=== PATIENT | male | born 2000 | race Caucasian/White ===

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

== ENCOUNTER 2022-01-01 17:30 | Emergency (ER) | payer MEDICAID, SELFPAY ==
[2022-01-01 17:45] VITALS: BP 139/76; PULSE 60; RESP 18; TEMP 37.1; O2SAT 99
--- NOTE | 2022-01-01 20:44 | W.ED.GENAD ---
Discharge Plan Disposition Patient Disposition: HOME Condition: Stable Discharge Details Clinical Impression: Temporomandibular joint (TMJ) pain Primary Care Provider: Honey Hale ED Provider: Rickey Sandhu Home Meds and New Rx's Prescriptions: New ibuprofen [IBU] 600 mg tablet 600 mg PO QID PRN (Reason: pain) Qty: 20 0RF cyclobenzaprine 5 mg tablet 10 mg PO TID PRN (Reason: muscle spasm) Qty: 10 0RF Discharge Instructions Instructions: Temporomandibular Disorder (ED) Additional Instructions: If you develop any new or significant worsening of symptoms feel free to return to the emergency department for reassessment. Otherwise if not improving after 1 week please follow-up with primary care provider or urgent care as you may need a ENT referral. Please be cautious with taking the muscle relaxer as this may cause some sedation. Please use caution with driving, shooting guns, or any use of heavy machinery or dangerous. Referrals: Honey Hale NP [Primary Care Provider] - Discharge Data Discharge Date/Time-TO BE ENTERED AT DEPARTURE: 01/01/22 21:41 Medical Decision Making Patient presenting to the emergency department for chief complaint of right jaw pain. He does state that pain does slightly radiate up into his head and slightly behind his ear. Patient denies any fever chills, difficulty breathing or swallowing. Physical exam shows tenderness to the TMJ when patient opens and closes his mouth and to palpation of the area otherwise no signs of rash to suggest zoster, no findings to suggest trigeminal neuralgia, no temporal tenderness to suggest temporal arteritis, no signs of infection. Suspect TMJ dysfunction. Will treat with NSAIDs and give patient a limited prescription of Flexeril to see if this helps. Patient otherwise to follow-up with dental provider or return for any new or significant worsening of symptoms. After discussion of diagnosis and plan of care patient has no further needs, questions, or concerns and states clear understanding to return to the emergency department for any worsening symptoms. This documentation was generated using [employer] system, please disregard any oddities of phrase or misspellings. HPI General Mode of arrival: ambulatory. Date/Time Provider Initiated Documentation: 01/01/22 18:09. Limitations to Documentation: no limitations. Information obtained by: patient. History of Present Illness 21 year old M presents to the emergency department with the chief complaint of Right jaw pain , described as moderate, with intensity rated at 8. Quality is described as aching, and is localized to the mouth. Patient started experiencing this week(s) (3) and it has been constant. No relieving factors improve symptom(s), Eating worsens symptoms . Patient notes no other symptoms.. Patient did receive the following treatments prior to arrival, NSAID Related Data Home Medications Medication Instructions Recorded Confirmed cyclobenzaprine 5 mg tablet 10 mg PO TID PRN muscle spasm #10 01/01/22 tabs ibuprofen 600 mg tablet (IBU) 600 mg PO QID PRN pain #20 tabs 01/01/22 Previous Rx's Medication Instructions Recorded cyclobenzaprine 5 mg tablet 10 mg PO TID PRN muscle spasm #10 01/01/22 tabs ibuprofen 600 mg tablet (IBU) 600 mg PO QID PRN pain #20 tabs 01/01/22 Allergies Allergy/AdvReac Type Severity Reaction Status Date / Time mold Allergy Severe Respiratory Verified 03/19/21 14:19 issues No Known Drug Allergies Allergy Verified 03/19/21 14:19 General Stated Complaint: DentalOral LUISA: 4 Review of Systems Constitutional Constitutional: Denies chills and Denies fever(s) ENT Ears, Nose, Mouth, and Throat: Reports as per HPI, Denies change in voice, Reports dental pain, Denies dysphagia, Denies throat swelling and Denies tongue swelling Cardiovascular Cardiovascular: Denies chest pain and Denies dyspnea Respiratory Respiratory: Denies dyspnea, Denies stridor and Denies wheezing Gastrointestinal Gastrointestinal: Denies abdominal pain, Denies dysphagia, Denies nausea and Denies vomiting Integumentary/Breasts Skin/Breast: Denies rash Allergic/Immunologic Allergic/Immunologic: Denies throat swelling, Denies tongue swelling and Denies wheezing [facility] Active Problems (Updated 01/01/22 @ 20:45 by Rickey Sandhu NP) Temporomandibular joint (TMJ) pain (Acute) Strain of left elbow (Acute) History of marijuana use (Acute 03/18/17) Anxiety and depression (Chronic) Medical History (Updated 01/01/22 @ 20:45 by Rickey Sandhu NP) History of wrist sprain Right ankle sprain Tendonitis Family History Mother Neoplasm THYROID Father Mental disorder SIBL[place] Asthma Social History Smoking/Tobacco Use Status: Never Smoking risk assessment performed?: Yes Alcohol Intake: never Substance use type: does not use Education Level: college Details: freshman [employer] fall 2020 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 Pets and animals: Yes Pets and animals: cat(s) and dog(s) Do you feel safe at home: Yes Do you feel safe in your relationship?: Yes Exam Const General: cooperative Orientation: alert, awake and oriented x3 Limitations: mental status not altered HENMT Head: normal to inspection, normocephalic and atraumatic Ears: hearing grossly normal bilaterally, normal mastoids bilaterally and no periauricular adenopathy General nose exam: external nose normal Face and sinus: no erythema, no edema and tenderness on the right mandible (TMJ) Mouth: oropharynx normal, no drooling, no muffled voice, normal tongue, abnormal TMJ (Pain with movement) and no trismus Throat: posterior oropharynx normal, tonsils normal and uvula midline Eyes General: appearance normal, both eyes and all related structures Pupils: PERRL Neck Neck: normal visual inspection, full ROM, no lymphadenopathy, no meningeal signs, trachea midline, supple, no anterior neck swelling and no midline deformity Resp Effort & Inspection: normal respiratory effort and able to speak in complete sentences Neuro General: patient alert, patient awake, patient oriented x3, tone normal, normal light touch, pain and propioception, no focal motor deficits and CN's II-XI intact bilaterally Course Vital Signs Vital signs: Vital Signs Temperature 37.1 C 01/01/22 17:45 Pulse 60 01/01/22 17:45 Respiratory Rate 18 01/01/22 17:45 Blood Pressure 139/76 01/01/22 17:45 Pulse Oximetry 99 01/01/22 17:45 Temperature 37.1 C 01/01/22 17:45 Pulse 60 01/01/22 17:45 Respiratory Rate 18 01/01/22 17:45 Blood Pressure 139/76 01/01/22 17:45 Blood Pressure Position Sitting 01/01/22 17:45 Pulse Oximetry 99 01/01/22 17:45 Oxygen Delivery Method Room Air 01/01/22 17:45 Oxygen Flow Rate 0 01/01/22 17:45 Pain Level 8 01/01/22 17:45
[2022-01-01] MEDS: Ketorolac 30 MG/ML VIAL IM (20:57)
[2022-01-01] MEDS: Cyclobenzaprine 10 MG TAB, 3 TABS/BTL PO (20:57)
== END 2022-01-01 21:41 | disposition home or self-care (01) ==
PROVIDERS: Emergency Provider Nurse Practitioner Family; PCP Nurse Practitioner Pediatrics
DX: M26.621 Arthralgia of right temporomandibular joint (principal)
CPT/HCPCS: 96372; 99284; 99283; J1885

== ENCOUNTER 2022-02-06 21:36 | Emergency (ER) | payer MEDICAID, SELFPAY ==
[2022-02-06 21:43] VITALS: BP 139/76; PULSE 72; RESP 16; TEMP 37.3; O2SAT 100
--- NOTE | 2022-02-06 21:45 | DI.RAD_ITS ---
Exam(s) XR SHOULDER RT COMPLETE 2+V EXAM: XR SHOULDER RT COMPLETE 2+V CLINICAL HISTORY: Right shoulder pain,. TECHNIQUE: 2D digital imaging was performed of the right shoulder. Five images were obtained. AP, Grashey, Y-view and axillary views were obtained. COMPARISON: No exams were available for comparison FINDINGS: BONES: No acute fracture is present. No bony destructive lesion is seen. JOINTS: No dislocation present. SOFT TISSUE: Normal. IMPRESSION: Unremarkable radiographs of the right shoulder. DATA REPOSITORY: RADIATION DOSE DELIVERED:
--- NOTE | 2022-02-06 21:58 | W.ED.GENAD ---
Discharge Plan Disposition Patient Disposition: Home Condition: Stable Discharge Details Clinical Impression: Sprain of right shoulder Primary Care Provider: Honey Hale ED Provider: Isabela Mayer Home Meds and New Rx's Prescriptions: No Action No Known Home Meds Discharge Instructions Instructions: Shoulder Sprain (ED) Additional Instructions: I do suspect a sprain or strain of your right shoulder due to overuse. I do recommend muscle relaxer for the muscle spasms you may try 1 tablet a day at bedtime. You may also alternate ice and heat, you were given a lidocaine patch here in the department which she can get [id number]. Please take Tylenol or Ibuprofen with food every 4-6 hours as needed for pain and swelling. Also consider massage. Follow-up with orthopedics if continued pain for further evaluation. Follow up with primary care provider in 3-5 days. Return to ED sooner if any worsening or concerns. Increase oral fluids. Referrals: Lemuel Esteban MD [ [facility] STAFF PHYSICIAN] - 2 weeks Honey Hale NP [Primary Care Provider] - 5 days Medical Decision Making 21-year-old male with past medical history of tendinitis, ankle sprain and possible TMJ presents to the ER with a chief complaint of right shoulder pain which is been ongoing for over a month. He does report hearing and feeling some clicks with certain movements, he does have overuse from basketball, he reports that the pain is spreading to his lateral neck and up into his ear and right jaw. Patient was here approximately a month ago and was prescribed Flexeril which he reports that he did not really take. X-ray right shoulder and ibuprofen ordered. X-ray within normal limits. We will give Flexeril and lidocaine patch. Instruct on alternating ice and heat and follow up with Orthopedics due to the length of pain, I do suspect Musculoskeletal strain and sprain. This text was generated using [employer] dictation system, please disregard any oddities of phrase or misspellings. Medical Records Medical records reviewed: Yes I reviewed the patient's medical records. Imaging Data Radiologic Study: Imaging: X-Ray Radiologist's impression: Views: 2 or more views. COMPARISON: CR XR CHEST 2V PA LATERAL 03/19/2021 2:56 PM FINDINGS: Bones/joints: Normal. Soft tissues: Normal. IMPRESSION: No acute findings. Sign Out No HPI General Mode of arrival: ambulatory. Date/Time Provider Initiated Documentation: 02/06/22 21:39. Limitations to Documentation: no limitations. Information obtained by: patient, RN notes reviewed and old records reviewed. HPI Narrative: 21-year-old male with past medical history of tendinitis, ankle sprain and possible TMJ presents to the ER with a chief complaint of right shoulder pain which is been ongoing for over a month. He does report hearing and feeling some clicks with certain movements, he does have overuse from basketball, he reports that the pain is spreading to his lateral neck and up into his ear and right jaw. Patient was here approximately a month ago and was prescribed Flexeril which he reports that he did not really take. He is also not taking any Tylenol or ibuprofen. He has no known recent injury other than basketball overuse, no significant deformity or abnormality. He is moving his arm without difficulty but does report increased pain with horizontal adduction. Related Data Home Medications Medication Instructions Recorded Confirmed Unknown [No Known Home Meds] 02/06/22 02/06/22 Allergies Allergy/AdvReac Type Severity Reaction Status Date / Time mold Allergy Severe Respiratory Verified 02/06/22 21:47 issues No Known Drug Allergies Allergy Verified 02/06/22 21:47 General Stated Complaint: Orthopedic LUISA: 4 Review of Systems All systems reviewed & are unremarkable except as noted in HPI and below ENT Ears, Nose, Mouth, and Throat: Reports as per HPI, Reports facial pain and Reports neck pain (Right lateral) Cardiovascular Cardiovascular: Denies chest pain and Denies dyspnea Respiratory Respiratory: Denies dyspnea Musculoskeletal Musculoskeletal: Reports as per HPI, Reports arthralgias (hears clicks feels out of place), Reports neck pain (Right lateral), Reports radiating pain into limb and Reports stiffness PFS All Active Problems (Updated 02/06/22 @ 22:25 by Isabela Mayer NP) Sprain of right shoulder (Acute) Strain of left elbow (Acute) History of marijuana use (Acute 03/18/17) Anxiety and depression (Chronic) Medical History History of wrist sprain Right ankle sprain Tendonitis Family History Mother Neoplasm THYROID Father Mental disorder SIBLING Asthma Social History Smoking/Tobacco Use Status: Never Smoking risk assessment performed?: Yes Alcohol Intake: never Drug use: Daily Substance use type: marijuana Education Level: college Details: freshman [employer] fall 2020 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 Appears stated age. Normal body habitus. Head: Normocephalic, no trauma. Eyes: Pupils PERRL, Red reflex noted, EOM's intact. Eyelids symmetrical without lesions, discharge, or swelling. ENT: Bilateral TM's WNL, External ear normal to inspection, no mastoid TTP, swelling, or erythema, Nasal turbinates WNL, no nasal discharge. Normal dentition, Posterior pharynx WNL, no exudate. Chest: RRR, Normal S1, S2, distal pulses intact. Resp: Lungs clear to auscultation bilaterally, no wheezes, rales, or rhonchi. Musculoskeletal: Normal gait, 5/5 strength to all four extremities. Lateral right paraspinous pain and spasm. No obvious deformity, swelling, erythema, distal CMS intact. Skin: No suspicious rashes or lesions. Capillary refill less than 2 sec. Course Vital Signs Vital signs: Vital Signs Temperature 37.3 C 02/06/22 21:43 Pulse 72 02/06/22 21:43 Respiratory Rate 16 02/06/22 21:43 Blood Pressure 139/76 02/06/22 21:43 Pulse Oximetry 100 02/06/22 21:43 Temperature 37.3 C 02/06/22 21:43 Temperature Source Temporal Artery Scan 02/06/22 21:43 Pulse 72 02/06/22 21:43 Respiratory Rate 16 02/06/22 21:43 Respiratory Effort 02/06/22 21:43 Blood Pressure 139/76 02/06/22 21:43 Blood Pressure Position Sitting 02/06/22 21:43 Pulse Oximetry 100 02/06/22 21:43 Oxygen Delivery Method Room Air 02/06/22 21:43 Oxygen Flow Rate 0 02/06/22 21:43 Pain Level 4 02/06/22 21:43
[2022-02-06] MEDS: Ibuprofen 600 MG TAB PO (22:18)
--- NOTE | 2022-02-06 22:19 | DI.VRAD_ITS ---
PROCEDURE INFORMATION: Exam: XR Right Shoulder Exam date and time: 02/06/2022 10:09 PM Age: 21 years old Clinical indication: Pain; Shoulder; Right TECHNIQUE: Imaging protocol: Radiologic exam of the Right shoulder. Views: 2 or more views. COMPARISON: CR XR CHEST 2V PA LATERAL 03/19/2021 2:56 PM FINDINGS: Bones/joints: Normal. Soft tissues: Normal. IMPRESSION: No acute findings. Dictated and Authenticated by: Avinash Weir MD. Ordering:MAKSIM Mar MD
[2022-02-06] MEDS: Lidocaine 5% Patch 1 PATCH TP (22:32)
[2022-02-06] MEDS: Cyclobenzaprine 10 MG TAB, 3 TABS/BTL PO (22:33)
== END 2022-02-06 22:36 | disposition home or self-care (01) ==
PROVIDERS: Emergency Provider Registered Nurse Emergency; PCP Nurse Practitioner Pediatrics
DX: S43.491A Other sprain of right shoulder joint, initial encounter (principal); X58.XXXA Exposure to other specified factors, initial encounter
CPT/HCPCS: 99283; 73030

== ENCOUNTER 2022-02-07 23:26 | Emergency (ER) | payer MEDICAID, SELFPAY ==
[2022-02-07 23:30] VITALS: BP 128/81; PULSE 80; RESP 16; TEMP 36.7; O2SAT 96
--- NOTE | 2022-02-07 23:50 | ED.GENADUL_ITS ---
Discharge Plan Disposition Patient Disposition: Home Condition: Good Discharge Details Clinical Impression: Epicondylitis, lateral, right, Acute carpal tunnel syndrome of right wrist Primary Care Provider: Honey Hale ED Provider: Zion Gavin Home Meds and New Rx's Prescriptions: No Action No Known Home Meds Discharge Instructions Instructions: Tennis Elbow (ED), Paresthesia (ED) Additional Instructions: At this time there are 3 main issues going on. 1. In regards to your right shoulder, you have notable asymmetry which is likely from a mild scoliosis. It is led to muscle hypertrophy over your scapular spine. Please continue to massage the area gently, follow-up closely with physical therapy for continued physical therapy management of this area. If the pain worsens or changes you may need further imaging in the future. 2. in regards to your right elbow you have lateral epicondylitis/tennis elbow. This can occur from repetitive motions, and certain strains. We do not have the splint here, but at your local [facility], [facility] or [facility] you can pickle cutter a tennis elbow brace which is a band that goes around the forearm that I showed you here in the emergency department. Please use this every day whenever you are working to help the tendons heal. 3. You also have carpal tunnel syndrome which is mild. Please perform carpal tunnel stretches that can be found online. Apply the stretches 2-3 times per day. Avoid repetitive keyboard typing or computer mouse use. Regards to all 3 of these, it will take a few weeks for the pain and symptoms to improve as many of the symptoms have been going on for some time. Tylenol and Motrin will definitely help. Regular stretching will definitely help. Physical therapy will be very advantageous. If you notice any worsening of your symptoms, or any new symptoms such as vomiting, diarrhea, fever, chills, shortness of breath, chest pain, numbness, weakness, or fainting , please return immediately to the emergency department for reevaluation. Please follow up with your primary care provider as soon as possible for reassessment and reevaluation. As always, it was a pleasure partici pating in your medical care today. Referrals: Honey Hale NP [Primary Care Provider] - Discharge Data Discharge Date/Time-TO BE ENTERED AT DEPARTURE: 02/08/22 00:14 Medical Decision Making 21-year-old male presents today for evaluation of right thumb tingling, right wrist pain, right lateral elbow pain and tingling, and mild right shoulder pain. He was seen and assessed here yesterday, had negative x- rays, was prescribed muscle relaxant which she states does not make him feel good. He denies any other significant acute changes. No trauma. He is left- hand dominant but does do a lot of things with his right hand. 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 He has not taken any NSAIDs. No other complaints at this time. No other modifying factors. Exam demonstrates 3 main findings, he has a small muscle bulge over the superior spine of the scapula on the right, as well as a right-sided shoulder drop compared to the left. Likely secondary to a component of mild scoliosis. And chronic asymmetry leading to hypertrophy, however there does not appear to be any acute component at this time clinically. Additionally patient demonstrates evidence of lateral epicondylitis on the right, will recommend tennis elbow brace for use at work and with activities. Thirdly the patient demonstrates evidence of mild carpal tunnel syndrome, positive Tinel's test, but no evidence of significant neurovascular compromise. Recommend NSAIDs, tennis elbow brace, and outpatient physical therapy. Discussed red flags which to return. No indication for emergent imaging at this time. I have extensively reviewed the treatment plan and discharge instructions with the patient. I have addressed all patient concerns at this time. The patient was made aware of what symptoms to monitor for that would warrant a return to the emergency department. Discussed the plan with the patient, they demonstrate verbal understanding and agreement with our assessment and plan at this time. The documentation in this chart was dictated using [employer] dictation software. Please excuse any dictation errors. Sign Out No HPI General Date/Time Provider Initiated Documentation: 02/07/22 23:27 . HPI Narrative: 21-year-old male presents today for evaluation of right thumb tingling, right wrist pain, right lateral elbow pain and tingling, and mild right shoulder pain. He was seen and assessed here yesterday, had negative x- rays, was prescribed muscle relaxant which she states does not make him feel good. He denies any other significant acute changes. No trauma. He is left- hand dominant but does do a lot of things with his right hand. 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 He has not taken any NSAIDs. No other complaints at this time. No other modifying factors. Related Data Home Medications Medication Instructions Recorded Confirmed Unknown [No Known Home Meds] 02/06/22 02/06/22 Allergies Allergy/AdvReac Type Severity Reaction Status Date / Time mold Allergy Severe Respiratory Verified 02/06/22 21:47 issues No Known Drug Allergies Allergy Verified 02/06/22 21:47 General Stated Complaint: Orthopedic LUISA: 4 Review of Systems All systems reviewed & are unremarkable except as noted in HPI and below PFSH All Active Problems Sprain of right shoulder (Acute) Epicondylitis, lateral, right (Acute) Acute carpal tunnel syndrome of right wrist (Acute) Strain of left elbow (Acute) History of marijuana use (Acute 03/18/17) Anxiety and depression (Chronic) Medical History History of wrist sprain Right ankle sprain Tendonitis Family History Mother Neoplasm THYROID Father Mental disorder SIBLING Asthma Social History Smoking/Tobacco Use Status: Never Smoking risk assessment performed?: Yes Alcohol Intake: never Drug use: Daily Substance use type: marijuana Education Level: college Details: freshman [employer] fall 2020 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 3.ENT: Atraumatic external nose and ears. Moist MM. Neck: Symmetric, trachea midline, No thyromegaly. 4.CVS: +S1/S2, No murmurs or gallops. Peripheral pulses 2+ and equal in all extremities. Brisk capillary refill in all extremities. 5.RESP: Unlabored respiratory effort. Clear to auscultation bilaterally. No wheezes rales or rhonchi 6.GI: Soft, Nontender/Nondistended, No hepatosplenomegaly. No guarding or rebound. 7.MSK: Shoulder is unremarkable and nontender, scapula does demonstrate a bit of a muscle bulge over the superior aspect of the scapular spine. No redness or cellulitis to suggest infection. No palpable lipoma. Range of motion normal. Evaluation of the shoulders demonstrates that the right shoulder drops about an inch below where the left shoulder is. There also appears to be a slight rotational and side bending deformity of the spine suggesting mild scoliosis. Range of motion and strength is otherwise normal. Evaluation of the right elbow demonstrates tenderness over the lateral epicondyle, no redness or warmth to suggest infection. Mild tenderness over the proximal component of the radius. Worse with pronation. No other evidence of injury Evaluation of right hand and wrist demonstrates normal radial pulse, good sensation and normal cap refill throughout. Patient demonstrates good two-point discrimination in the hand and fingers, including in the distal thumb. Subjective diminished sensation over the thenar eminence however it is present on testing. Patient does have a positive Rocky Face's test, which does reproduce his symptoms. 8.Skin: Warm, Dry. No rashes or lesions. 9.Neuro: professional skater II-XII grossly intact. Sensation grossly intact, no focal neurologic deficits. 10.Psych: (AAO) x3. Appropriate mood and affect Course Vital Signs Vital signs: Vital Signs Temperature 36.7 C 02/07/22 23:30 Pulse 80 02/07/22 23:30 Respiratory Rate 16 02/07/22 23:30 Blood Pressure 128/81 02/07/22 23:30 Pulse Oximetry 96 02/07/22 23:30 Temperature 36.7 C 02/07/22 23:30 Pulse 80 02/07/22 23:30 Respiratory Rate 16 02/07/22 23:30 Blood Pressure 128/81 02/07/22 23:30 Blood Pressure Position Sitting 02/07/22 23:30 Pulse Oximetry 96 02/07/22 23:30 Oxygen Delivery Method Room Air 02/07/22 23:30 Oxygen Flow Rate 0 02/07/22 23:30 Pain Level 3 02/07/22 23:30
== END 2022-02-08 00:14 | disposition home or self-care (01) ==
PROVIDERS: Emergency Provider Student in an Organized Health Care Education/Training Program; PCP Nurse Practitioner Pediatrics
DX: M77.11 Lateral epicondylitis, right elbow (principal); G56.01 Carpal tunnel syndrome, right upper limb; R20.2 Paresthesia of skin
CPT/HCPCS: 99282

== ENCOUNTER 2022-03-04 17:04 | Emergency (ER) | payer MEDICAID, SELFPAY ==
[2022-03-04] VITALS (26 sets, daily range): BP systolic 110–138; BP diastolic 60–81; PULSE 60–107; RESP 7–22; TEMP 37; O2SAT 95–100
--- NOTE | 2022-03-04 17:00 | RT.EKG_ITS ---
APPROVED REPORT Exam: Resting ECG Reason for Exam: chest pain Patient Location: E HR:73 bpm ECG Measurements Heart Rate 73 AXIS GA 138 P 85 QRSd 105 QRS 67 QT 389 T 67 QTc 430 Conclusion Sinus rhythm...normal P axis, V-rate 60- 99
--- NOTE | 2022-03-04 17:15 | DI.CT_ITS ---
Exam(s) CT HEAD WO EXAM: CT HEAD WO CLINICAL HISTORY: headaches. TECHNIQUE: Imaging Protocol: Axial computed tomography images with coronal and sagittal reformatted images were created and reviewed COMPARISON: No exams were available for comparison FINDINGS: There are no skull fractures. There is no fluid in the visualized paranasal sinuses. There is no evidence of intracranial hemorrhage, mass effect, or shift of midline structures. There are no extra-axial fluid collections. The ventricles are not enlarged or shifted and there is no blo od within the ventricular system nor within the basal cisterns. IMPRESSION: No acute intracranial findings on this noninfused CT scan of the brain. RADIATION DOSE DELIVERED: 704.72mGy.cm Total DLP DATA REPOSITORY: All CT scans at this facility are submitted to the National Radiology Data Registry (NRDR) Dose Index Registry (DIR) with the [employer] (ACR). RADIATION OPTIMIZATION: All CT scans at this facility use at least one of these dose optimization te chniques: automated exposure control; mA and/or kV adjustment per patient size (includes targeted exa ms where dose is matched to clinical indication); or iterative reconstruction.
--- NOTE | 2022-03-04 17:15 | DI.RAD_ITS ---
Exam(s) XR CHEST 2V PA LATERAL EXAM: XR CHEST 2V PA LATERAL CLINICAL HISTORY: chest pain. TECHNIQUE: 2D digital imaging was performed. COMPARISON: CR XR CHEST 2V PA LATERAL from 03/19/2021 FINDINGS: 2 views: Heart size is normal. The mediastinum is not widened. Lungs are clear. No infiltrates nor pleural effusions. IMPRESSION: No acute pulmonary findings. DATA REPOSITORY: RADIATION DOSE DELIVERED:
--- NOTE | 2022-03-04 17:31 | ED.GENADUL_ITS ---
Discharge Plan Disposition Patient Disposition: Home Condition: Stable Discharge Details Clinical Impression: Chest pain Primary Care Provider: Honey Hale ED Provider: Nikolas Cote Home Meds and New Rx's Prescriptions: No Action No Known Home Meds Discharge Instructions Instructions: Chest Pain (ED) Additional Instructions: your blood work and cat scan did not show concerning findings at this time follow up as soon as possible with your primary care provider if you feel more ill, have worsening pain or difficulty breathing return to the emergency department Medical Decision Making 21 yo male who denies chronic medical problems comes in with 1-2 months of joints pains, neck pain, and chest tightness and also notes mild headaches and intermittent numbness of the extremities. HE denies any falls, fevers, chills, vision changes, syncope, vomiting, abdominal pain. He denies swelling of the joints or rashes. He states he gets aches on the right side of his neck and travels to his right shoulder and has tightness in his chest intermittently. HE denies any current weakness or numbness. He arrives stable speaking in full sentences with clear speech. HE does appear mildly anxious. He is caox4, cn ii- xii intact, no focal motor or sensation deficits, nih of 0. He has clear lungs, no murmurs, no jvd or leg swelling. HAS reproducible tenderness throughout the right trapezius muscle, full rom of the extremities, normal peripheral pulses. Unclear etiology of his symptoms, could have an undiagnosed arthritis condition though would be young to have something like rheumatoid arthritis. HAS no findings on exam to suggest infectious etiology. He is well slow and perc negative so doubt pe. His chest pain is reproducible but will send troponin. No tearing back pain and normal peripheral pulses so doubt dissection. His complaints are primarily pain but has had subjective nubmness as well and mild headaches. no findings to suggest cva, and unlikely MS. Will proceed with ct of the head to further evaluate. 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 He has no new findings on exam and no deficits on exam. Discussed wth pt and his mother and though unclear etiology for his constellation of symptoms he is stable for d/c and understands importance of f/u with his pcp, return precautions given Differential Diagnosis Differential Diagnosis: arthritis, ms, electrolyte abnormality Medical Records Medical records reviewed: Yes I reviewed the patient's medical records. Imaging Data Radiologic Study: Attestation: I personally reviewed and interpreted this imaging study as follows: Imaging: X-Ray My impression: Radiologist's impression: no acute findings Radiologic Study #2: Attestation: I personally reviewed and interpreted this imaging study as follows: Imaging: CT Scan Radiologist's impression: no acute findings Lab Data Lab results reviewed: Yes I reviewed the patient's lab results. ECG Data Attestation: I personally reviewed and interpreted this ECG (s) as follows: Prior ECG tracings: not available for review Interpretation: sinus rhythm, rate of 73, pr [address] t wave ischemic findings HPI General Mode of arrival: ambulatory . Date/Time Provider Initiated Documentation: 03/04/22 17:08 . Limitations to Documentation: no limitations . Information obtained by: patient and family . History of Present Illness 21 year old M presents to the emergency department with the chief complaint of chest pain, described as moderate, Quality is described as aching, and is localized to the chest. Patient started experiencing this month(s) (1) and it has been intermittent. No relieving factors improve symptom(s), No exacerbating factors reported . Patient notes malaise; denies fever/chills and shortness of breath. Patient did receive the following treatments prior to arrival, none Related Data Home Medications Medication Instructions Recorded Confirmed Unknown [No Known Home Meds] 02/06/22 03/04/22 Allergies Allergy/AdvReac Type Severity Reaction Status Date / Time mold Allergy Severe Respiratory Verified 03/04/22 17:11 issues No Known Drug Allergies Allergy Verified 03/04/22 17:11 General Stated Complaint: Chest Pain LUISA: 3 Review of Systems All systems reviewed & are unremarkable except as noted in HPI and below Constitutional Constitutional: Denies chills and Denies fever(s) Cardiovascular Cardiovascular: Denies dyspnea Respiratory Respiratory: Denies cough and Denies dyspnea Gastrointestinal Gastrointestinal: Denies abdominal pain and Denies vomiting Genitourinary Genitourinary: Denies dysuria Musculoskeletal Musculoskeletal: Denies joint swelling Integumentary/Breasts Skin/Breast: Denies rash Psychiatric Psychiatric: Denies depression PFSH All Active Problems (Updated 03/04/22 @ 18:35 by Nikolas Cote MD) Sprain of right shoulder (Acute) Epicondylitis, lateral, right (Acute) Acute carpal tunnel syndrome of right wrist (Acute) Chest pain (Acute) Strain of left elbow (Acute) History of marijuana use (Acute 03/18/17) Anxiety and depression (Chronic) Medical History History of wrist sprain Right ankle sprain Tendonitis Family History Mother Neoplasm THYROID Father Mental disorder SIBLING Asthma Social History Smoking/Tobacco Use Status: Never Smoking risk assessment performed?: Yes Alcohol Intake: never Drug use: Socially Substance use type: marijuana Education Level: college Details: freshman [employer] fall 2020 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 Pets and animals: Yes Pets and animals: cat(s) and dog(s) Do you feel safe at home: Yes Do you feel safe in your relationship?: Yes Exam Const General: no acute distress Orientation: alert HENMT Head: normal to inspection Ears: external ears normal General nose exam: external nose normal Mouth: moist mucous membranes Eyes General: appearance normal, both eyes and all related structures Neck Neck: normal visual inspection Resp Effort & Inspection: normal respiratory effort and able to speak in complete sentences Auscultation: clear to auscultation bilaterally Cardio Jugular venous pressure: no JVD Rate: regular rate Heart Sounds: no murmurs GI Palpation: soft and nontender Skin General skin exam: no rashes or lesions noted Neuro General: patient alert and patient oriented x3 Extrem General: normal to inspection Psych Mental Status: mental status grossly normal Course Vital Signs Vital signs: Vital Signs Temperature 37.0 C 03/04/22 17:07 Pulse 79 03/04/22 17:07 Respiratory Rate 17 03/04/22 17:07 Blood Pressure 120/72 03/04/22 17:07 Pulse Oximetry 98 03/04/22 17:07 Temperature 37.0 C 03/04/22 17:07 Temperature Source Temporal Artery Scan 03/04/22 17:07 Pulse 79 03/04/22 17:07 Respiratory Rate 17 03/04/22 17:07 Respiratory Effort 03/04/22 17:10 Blood Pressure 120/72 03/04/22 17:07 Blood Pressure Position Sitting 03/04/22 17:07 Pulse Oximetry 98 03/04/22 17:07 Oxygen Delivery Method Room Air 03/04/22 17:07 Oxygen Flow Rate 0 03/04/22 17:07 Pain Level 8 03/04/22 17:07 PAWSS Have you Been Recently Intoxicated or Drunk Within the Last 30 days?: No Have you Ever Experienced Previous Episodes of Alcohol Withdrawal?: No Have you ever Experienced Withdrawal Seizures?: No Have you ever Experienced Delirium Tremens(DT)s?: No Have you ever undergone Alcohol Rehabilitation Treatment (i.e, inpt ot outpatient treatment programs)?: No Have you ever Experienced Blackouts?: No Have you ever Combined Alcohol with other Downers within the last 90 days?: No Have you ever Combined Alcohol with any other Substance of Abuse during the last 90 days?: No Result: 0
[2022-03-04 17:40] LABS: Abs Immature Grans 0.01 10^3/uL (0.0-0.06); Absolute Basophil Count 0.05 10^3/uL (0.0-0.2); Absolute Eosinophil Count 0.23 10^3/uL (0.0-0.7); Absolute Lymphocyte Count 2.54 10^3/uL (1.2-3.4); Absolute Monocyte Count 0.64 10^3/uL (0.1-0.8); Absolute Neutrophil Count 3.95 10^3/uL (1.2-6.7); Basophils % 0.7; Eosinophils % 3.1; HCT 42.1 % (40.0-50.0); HGB 14.4 g/dL (13.5-17.5); Immature Grans % 0.1; Lymphocytes % 34.2; MCH 30.8 pg (27.0-33.0); MCHC 34.2 % (32.0-36.0); MCV 90 fL (80-95); MPV 10.5 fL (8.0-11.0); Monocytes % 8.6; Neutrophils % 53.3; Platelet Count 209 10^3/uL (130-400); RBC 4.68 10^6/uL (4.36-5.78); RDW 11.7 % (11.8-14.1); RDW-SD 38.1 fL; WBC 7.42 10^3/uL (4.4-10.8)
--- NOTE | 2022-03-04 18:06 | DI.VRAD_ITS ---
PROCEDURE INFORMATION: Exam: CT Head Without Contrast Exam date and time: 03/04/2022 5:46 PM Age: 21 years old Clinical indication: Headaches TECHNIQUE: Imaging protocol: Computed tomography of the head without contrast. Radiation optimization: All CT scans at this facility use at least one of these dose optimization techniques: automated exposure control; mA and/or kV adjustment per patient size (includes targeted exams where dose is matched to clinical indication); or iterative reconstruction. COMPARISON: CR XR MANDIBLE COMPLETE 12/13/2021 3:48 PM FINDINGS: Brain: There is no acute intracranial hemorrhage, mass effect or midline shift. There is no large acute territorial cerebral infarct. Cerebral ventricles: No ventriculomegaly. Paranasal sinuses: Visualized sinuses are unremarkable. No fluid levels. Mastoid air cells: Visualized mastoid air cells are well aerated. Bones/joints: No acute fracture. Soft tissues: Unremarkable. IMPRESSION: No acute intracranial hemorrhage, mass effect or midline shift. Dictated and Authenticated by: Khalida Hampton MD. Ordering:WESLEY Connor MD
--- NOTE | 2022-03-04 18:08 | DI.VRAD_ITS ---
PROCEDURE INFORMATION: Exam: XR Chest Exam date and time: 03/04/2022 5:54 PM Age: 21 years old Clinical indication: Other: Chest pain TECHNIQUE: Imaging protocol: Radiologic exam of the chest. Views: 2 views. COMPARISON: CR XR CHEST 2V PA LATERAL 03/19/2021 2:56 PM FINDINGS: Lungs: No consolidation. Pleural spaces: No pleural effusion. No pneumothorax. Heart/Mediastinum: No cardiomegaly. Bones/joints: Unremarkable. IMPRESSION: No acute findings. Dictated and Authenticated by: Khalida Hampton MD. Ordering:WESLEY Connor MD
[2022-03-04 18:55] LABS: ALT 33 U/L (16-63); AST 25 U/L (15-37); Albumin 4.6 g/dL (3.4-5.0); Alkaline Phosphatase 94 U/L (46-116); Anion Gap 5.9 mmol/L (3-11); BUN 21 mg/dL (7-18); Bilirubin, Total 0.3 mg/dL (0.2-1.0); CO2 31.1 mmol/L (21.0-32.0); CREATININE 1.1 mg/dL (0.70-1.30); Calcium 8.8 mg/dL (8.5-10.1); Chloride 107 mmol/L (98-107); Creatine Kinase 237 U/L (39-308); Estimated GFR 99.17 (mL/min/1.73m2); Glucose 101 mg/dL (74-106); Potassium 3.7 mmol/L (3.5-5.1); Sodium 144 mmol/L (136-145); Total Protein 7.6 g/dL (6.4-8.2); Troponin I < 50 ng/L (<or=60)
== END 2022-03-04 19:28 | disposition home or self-care (01) ==
PROVIDERS: Emergency Provider Emergency Medicine; PCP Nurse Practitioner Pediatrics
DX: R07.89 Other chest pain (principal); R51.9 Headache, unspecified; M54.2 Cervicalgia; R20.2 Paresthesia of skin; M25.511 Pain in right shoulder
CPT/HCPCS: 36415; 80053; 82550; 93005; 99284; 70450; 71046; 83735; 84484; 85025; 93010; 99285

== ENCOUNTER 2022-04-04 16:51 | Emergency (ER) | payer MEDICAID, SELFPAY ==
[2022-04-04 16:53] VITALS: BP 128/80; PULSE 94; RESP 18; TEMP 36.2; O2SAT 97
--- NOTE | 2022-04-04 16:58 | ED.GENADUL_ITS ---
Discharge Plan Disposition Patient Disposition: Home Condition: Stable Discharge Details Clinical Impression: Left inguinal pain Primary Care Provider: Honey Hale ED Provider: Isabela Mayer Home Meds and New Rx's Prescriptions: No Action No Known Home Meds Discharge Instructions Instructions: Groin Pain (ED) Additional Instructions: Please return tomorrow for an ultrasound and follow-up in the ER tomorrow morning. Please call the number after 7 AM on the top of the ultrasound order. Return sooner for any worsening pain, worsening swelling, problems urinating or any concerns. Please take Tylenol or Ibuprofen with food every 4-6 hours as needed for pain and swelling. You may lightly apply ice on and off every 20 to 30 minutes. No evidence of urinary tract infection at this time. Referrals: Honey Hale NP [Primary Care Provider] - 1 week Discharge Data Discharge Date/Time-TO BE ENTERED AT DEPARTURE: 04/04/22 18:19 Medical Decision Making 21-year-old male presents to the ER with chief complaint of left groin and testicle pain which began last night. He reports mild nausea. Denies any problems urinating or burning with urination denies any penile discharge or concerns for STDs. He denies any known recent trauma to the area. 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 Does have a past medical history of anxiety depression marijuana use. Relatively normal genital exam, will give Tylenol, Zofran and urinalysis. Urinalysis within normal limits. Twist score is low risk of 1. Will plan for outpatient ultrasound in the a.m. to follow-up for results in the ED. 1807: Reevaluation, patient is having more medial left groin pain then testicle pain. At this time clinically does not appear to be a torsion. However I will have them return in the a.m. for an ultrasound and a recheck in the ER tomorrow. I did discuss this with patient and his family who verbalized understanding and are in agreement with the plan. I did discuss strict return instructions to be seen or return to the ER for any worsening pain, worsening swelling or concerns before tomorrow. Verbalizes understanding. This text was generated using [employer] system, please disregard any oddities of phrase or misspellings. HPI General Mode of arrival: ambulatory . Date/Time Provider Initiated Documentation: 04/04/22 16:54 . Limitations to Documentation: no limitations . Information obtained by: patient, RN notes reviewed and old records reviewed . HPI Narrative: 21-year-old male presents to the ER with chief complaint of left groin and testicle pain which began last night. He reports mild nausea. Denies any problems urinating or burning with urination denies any penile discharge or concerns for STDs. He denies any known recent trauma to the area. 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 Does have a past medical history of anxiety depression marijuana use. Related Data Home Medications Medication Instructions Recorded Confirmed Unknown [No Known Home Meds] 02/06/22 04/04/22 Allergies Allergy/AdvReac Type Severity Reaction Status Date / Time mold Allergy Severe Respiratory Verified 04/04/22 16:55 issues No Known Drug Allergies Allergy Verified 04/04/22 16:55 General Stated Complaint: Male Reproductive Problem LUISA: 2 Review of Systems All systems reviewed & are unremarkable except as noted in HPI and below Gastrointestinal Gastrointestinal: Reports nausea Genitourinary Genitourinary: Denies dysuria, Reports testicular mass and Reports testicular pain PFSH All Active Problems (Updated 04/04/22 @ 18:10 by Isabela Mayer NP) Left inguinal pain (Acute) Strain of left elbow (Acute) History of marijuana use (Acute 03/18/17) Anxiety and depression (Chronic) Medical History History of wrist sprain Right ankle sprain Tendonitis Family History Mother Neoplasm THYROID Father Mental disorder SIBLING Asthma Social History Smoking/Tobacco Use Status: Never Smoking risk assessment performed?: Yes Alcohol Intake: never Drug use: Socially Substance use type: marijuana Education Level: college Details: freshman [employer] fall 2020 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 Pets and animals: Yes Pets and animals: cat(s) and dog(s) Do you feel safe at home: Yes Do you feel safe in your relationship?: Yes Exam Male General Exam: Yes normal external exam, No ecchymosis, No edema, No erythema and No inguinal lymphadenopathy Penis: normal penis, no masses, no nodules, no pustules, no swelling, no ulcerations and no vesicles Meatus: meatus normal and no meatla discharge Scrotum: scrotum normal, cremasteric reflex present, not edematous, no masses and no scrotal swelling Testes: normal, testicular lie normal, no blue dot sign, not enlarged, no masses and no testicular mass Course Vital Signs Vital signs: Vital Signs Temperature 36.2 C L 04/04/22 16:53 Pulse 94 H 04/04/22 16:53 Respiratory Rate 18 04/04/22 16:53 Blood Pressure 128/80 04/04/22 16:53 Pulse Oximetry 97 04/04/22 16:53 Temperature 36.2 C L 04/04/22 16:53 Temperature Source Tympanic 04/04/22 16:53 Pulse 94 H 04/04/22 16:53 Respiratory Rate 18 04/04/22 16:53 Blood Pressure 128/80 04/04/22 16:53 Blood Pressure Position Sitting 04/04/22 16:53 Pulse Oximetry 97 04/04/22 16:53 Oxygen Delivery Method Room Air 04/04/22 16:53 Oxygen Flow Rate 0 04/04/22 16:53 Pain Level 8 04/04/22 16:53
[2022-04-04] MEDS: Acetaminophen 325 MG TAB 650 MG PO (17:14)
[2022-04-04 17:24] LABS: Bilirubin Negative (Negative); Blood Negative (Negative); Clarity Clear (Clear); Glucose Negative (Negative); Ketones Negative (Negative); Leukocyte Esterase Negative (Negative); Nitrite Negative (Negative); Specific Gravity 1.015 (1.005-1.025); Urobilinogen 0.2 EU/dL (Up TO 0.2)
--- NOTE | 2022-04-04 18:09 | NUR.NOTE ---
Nursing Note: Faxed to DI request for US for scrotum, left groin pain; return to ED for results, to be done NILESH within 12 hrs.
[2022-04-04 18:14] VITALS: BP 128/69; PULSE 70; O2SAT 96
[2022-04-06 14:16] LABS: Chlamydia Result Negative (Negative); GC Result Negative (Negative)
--- NOTE | 2022-04-15 08:45 | NUR.NOTE ---
Nursing Note: NANO Schumacher called stating that they have left messages for this patient but he has not called back to schedule the scrotal US.
== END 2022-04-04 18:19 | disposition home or self-care (01) ==
PROVIDERS: Emergency Provider Registered Nurse Emergency; PCP Nurse Practitioner Pediatrics
DX: R10.32 Left lower quadrant pain (principal); N50.812 Left testicular pain; R11.0 Nausea
CPT/HCPCS: 87491; 87591; 99283; 81003

== ENCOUNTER 2022-05-30 13:22 | Outpatient (REF) | payer MEDICAID, SELFPAY ==
[2022-06-01 02:15] LABS: COVID-19 RT-PCR UVMMC Result Negative (Negative)
== END 2022-05-30 13:23 | disposition home or self-care (01) ==
LOC: LBN 13:22
PROVIDERS: PCP Nurse Practitioner Family; Visit Provider Physician Assistant Medical
DX: J02.9 Acute pharyngitis, unspecified (principal); J34.89 Other specified disorders of nose and nasal sinuses; Z20.822 Contact with and (suspected) exposure to COVID-19
CPT/HCPCS: U0003; 87070

== ENCOUNTER 2023-09-07 06:04 | Emergency (ER) | payer MEDICAID, SELFPAY ==
[2023-09-07] VITALS (68 sets, daily range): BP systolic 103; BP diastolic 70; PULSE 0–167; RESP 0–29; O2SAT 20–100
[2023-09-07] MEDS: Lactated Ringers 2,000 ML 1000 ML IV (06:50)
[2023-09-07] MEDS: Calcium Gluconate 4.65 MEQ/10 ML VIAL 13.95 MG IVP (06:53)
[2023-09-07 08:00] LABS: Abs Immature Grans 0.09 10^3/uL (0.0-0.06); HCT 28.1 % (40.0-50.0); HGB 7.9 g/dL (13.5-17.5); MCH 29.7 pg (27.0-33.0); MCHC 28.1 % (32.0-36.0); MCV 106 fL (80-95); MPV 9.8 fL (8.0-11.0); RBC 2.66 10^6/uL (4.36-5.78); RDW 13.9 % (11.8-14.1); RDW-SD 53.3 fL; WBC 3.23 10^3/uL (4.4-10.8)
[2023-09-07 08:13] LABS: ALT 147 U/L (16-63); AST 122 U/L (15-37); Albumin 1.7 g/dL (3.4-5.0); Alkaline Phosphatase 41 U/L (46-116); Anion Gap 27.7 mmol/L (3-11); BUN 10 mg/dL (7-18); Bilirubin, Total 0.24 mg/dL (0.2-1.0); CO2 14.3 mmol/L (21.0-32.0); Calcium 10.5 mg/dL (8.5-10.1); Chloride 108 mmol/L (98-107); Glucose 380 mg/dL (74-106); Potassium 5.8 mmol/L (3.5-5.1); Sodium 150 mmol/L (136-145); Total Protein 3.3 g/dL (6.4-8.2)
[2023-09-07 08:24] LABS: Absolute Eosinophil Count 0.06 10^3/uL (0.0-0.7); Absolute Lymphocyte Count 2.55 10^3/uL (1.2-3.4); Absolute Neutrophil Count 0.52 10^3/uL (1.2-6.7); Bands % 1 %; Platelet Count 59 10^3/uL (130-400)
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
[2023-09-07 08:25] LABS: Diff Comment Manual Differential; Macrocytosis 2+
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
[2023-09-07 08:58] LABS: D-Dimer > 7500 ng/mlFEU (<500)
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
--- NOTE | 2023-09-07 18:01 | NUR.NOTE ---
This insurance underwriter sales was called to assist in transporting pt to [facility] for Truama evaluation with [employer] In[employer] and [employer] crew. Patient maintained stability with permissive hypotension as priorly discussed with MD throughout the trip to [facility]. Pt continued to breath over the vent settings and increasing his minute ventilation from the preset high alarm of 10 to 11.1. 0837 minute ventilation alarm was increased to 12 respirations/min at this time 5 mg of midazolam was given for ventilator synchrony and protection of the neck injury repair. NG tube was put to suction at 0900 and 500 cc of blood was evacuated from the stomach prior to arrival. T Max on transport was 33.4, warm blankets were applied prior to departing [facility], Systolic pressures remained anywhere from 81-94 with diastolic pressures ranging from 50 -74. Upon arrival at 0915, BP bottomed out to 50/30. pt was transferred from ambulance to [facility] and Trauma team was made aware of critical changes. Further resuscitation efforts resumed in the care of the [facility] trauma team. Hand off concluded at the bedside at 1000
== END 2023-09-07 08:38 | disposition short-term general hospital (02) ==
PROVIDERS: Emergency Provider Emergency Medicine; PCP Nurse Practitioner Family
DX: S15.002A Unspecified injury of left carotid artery, initial encounter (principal); S15.302A Unspecified injury of left internal jugular vein, initial encounter; I46.8 Cardiac arrest due to other underlying condition; R57.8 Other shock; J93.9 Pneumothorax, unspecified; Y04.8XXA Assault by other bodily force, initial encounter; W26.0XXA Contact with knife, initial encounter
CPT/HCPCS: 00123; 31500; 36430; 36556; 37565; 37605; 51702; 80053; 86850; 86900; 86901; 86920; 92950; 96374; 96375; 96376; 99291; 99292; 71045; 85025; 85379; J0612; P9016; P9059